=== PATIENT | female | born 1985 | race African-American/Black ===

== ENCOUNTER 2019-03-23 13:14 | Observation (INO) ==
[2019-03-23] MEDS ORDERED: BISACODYL 5 MG TABLET PO PRN (13:17)
[2019-03-23] MEDS ORDERED: ALBUTEROL/IPRATROPIUM 3 ML NEB RESP TX PRN (13:17)
[2019-03-23] MEDS ORDERED: ACETAMINOPHEN 325 MG TABLET PO PRN (13:17)
[2019-03-23] MEDS ORDERED: ONDANSETRON 4 MG/2 ML VIAL IV PRN (13:17)
[2019-03-23] MEDS: KETOROLAC 10 MG TABLET PO PRN (16:40)
[2019-03-23] MEDS: LACTATED RINGERS 1,000 ML IV SCH (17:39)
[2019-03-23] MEDS: ALBUTEROL/IPRATROPIUM 3 ML NEB RESP TX SCH (19:23)
[2019-03-24] MEDS: ALBUTEROL/IPRATROPIUM 3 ML NEB RESP TX SCH ×4 (00:20→18:40)
[2019-03-24] MEDS: LACTATED RINGERS 1,000 ML IV SCH (02:19)
[2019-03-24 05:15] LABS: Basophils % 0.4 % (0.0-0.8); Eosinophils # 0.1 10*3/uL (0.0-0.87); Eosinophils % 0.9 % (0.00-10.9); Hemoglobin 10.8 GM/DL (12.0-16.0); Immature Granulocytes % 0.3 %; Immature Granulocytes Absolute 0.02 #; Lymphocytes # 2.1 10*3/uL (1.4-4.0); Lymphocytes % 30.8 % (21.3-54.2); Mean Corpuscular HGB Conc 31.8 GM/DL (32-36); Mean Platelet Volume 8.7 FL (9.6-12.0); Monocytes % 6.7 % (1.7-12.7); Neutrophils % 60.9 % (38.7-73.9); Platelet Count 358 T/CUMM (130-400); Red Blood Count 3.82 MC/CUMM (3.8-5.5); Red Cell Distribution Width 13.2 % (9.3-17.3); White Blood Count 6.7 T/CUMM (4-12)
[2019-03-24 05:31] LABS: Calcium 8.7 MG/DL (8.5-10.1); Osmolality,Calculated 284.7 MOS/KG (273-304)
[2019-03-24] MEDS: HYDROmorphone 2 MG/1 ML VIAL IV PRN ×2 (06:18→22:40)
[2019-03-24] MEDS: ENOXAPARIN 40 MG/0.4 ML SYRINGE SUBCUT SCH (06:21)
[2019-03-24] MEDS: PANTOPRAZOLE 40 MG TABLET PO SCH (09:43)
[2019-03-24] MEDS: KETOROLAC 10 MG TABLET PO PRN (14:07)
[2019-03-24 15:11] LABS: CKMB % 0.4 %; Troponin I < 0.015 NG/ML (0.00-0.045)
[2019-03-25] MEDS: ALBUTEROL/IPRATROPIUM 3 ML NEB RESP TX SCH ×2 (00:10→07:40)
[2019-03-25 05:33] LABS: CKMB % 0.2 %; Troponin I < 0.015 NG/ML (0.00-0.045)
[2019-03-25] MEDS: ENOXAPARIN 40 MG/0.4 ML SYRINGE SUBCUT SCH (06:40)
[2019-03-25] MEDS: KETOROLAC 10 MG TABLET PO PRN (06:41)
[2019-03-25] MEDS ORDERED: KETOROLAC 30 MG/1 ML VIAL IV ONE (07:21)
[2019-03-25] MEDS: HYDROmorphone 2 MG/1 ML VIAL IV PRN (07:50)
[2019-03-25 07:51] VITALS: BP 127/69
[2019-03-25] MEDS: PANTOPRAZOLE 40 MG TABLET PO SCH (09:30)
== END 2019-03-25 10:57 | disposition home or self-care (01) ==
LOC: N.3E
PROVIDERS: ADMIT Surgery; ATTEND Surgery